=== PATIENT | female | born 1975 | race African-American/Black ===

== ENCOUNTER 2017-09-28 15:33 | Emergency (ER) | payer MEDICARE, OTHER ==
[~2017-09-28] VITALS: Ht 160 cm; Wt 92.1 kg
[2017-09-28] MEDS ORDERED: ASPIR 8181 MG PO (16:00)
[2017-09-28] MEDS ORDERED: ACETAMINOPHEN 325 MG TAB PO ONE (16:00)
[2017-09-28] MEDS ORDERED: ATORVASTATIN CA10 MG PO (16:01)
[2017-09-28] MEDS ORDERED: BENZTROPINE ME0.5 MG PO (16:01)
[2017-09-28] MEDS ORDERED: BUSPIRONE HCL5 MG PO (16:02)
[2017-09-28] MEDS ORDERED: CRYSELLE1 EACH PO (16:03)
[2017-09-28] MEDS ORDERED: COLACE100 MG PO (16:04)
[2017-09-28] MEDS ORDERED: DIVALPROEX SOD500 M1 PO (16:04)
[2017-09-28] MEDS ORDERED: CYMBALTA30 MG PO (16:05)
[2017-09-28] MEDS ORDERED: FENOFIBRATE145 MG PO (16:05)
[2017-09-28] MEDS ORDERED: LEVOTHYROXINE75 MCG PO (16:06)
[2017-09-28] MEDS ORDERED: GABAPENTIN100 MG PO (16:06)
[2017-09-28] MEDS ORDERED: JANUVIA100 MG PO (16:06)
[2017-09-28] MEDS ORDERED: LISINOPRIL2.5 MG PO (16:07)
[2017-09-28] MEDS ORDERED: OMEPRAZOLE40 MG PO (16:09)
[2017-09-28] MEDS ORDERED: MIRTAZAPINE15 MG PO (16:09)
[2017-09-28] MEDS ORDERED: OLANZAPINE5 MG PO (16:09)
[2017-09-28] MEDS ORDERED: METFORMIN HCL500 MG PO (16:09)
[2017-09-28] MEDS ORDERED: QUETIAPINE FUM100 MG PO (16:09)
[2017-09-28] MEDS ORDERED: LITHIUM CARBON300 M1 PO (16:09)
[2017-09-28 16:32] VITALS: BP 108/57
== END 2017-09-28 16:15 | disposition home or self-care (01) ==
LOC: FSED 15:33
DX: M79.605 Pain in left leg (principal); M79.604 Pain in right leg; E11.40 Type 2 diabetes mellitus with diabetic neuropathy, unspecified; I10 Essential (primary) hypertension; G40.909 Epilepsy, unspecified, not intractable, without status epilepticus; K21.9 Gastro-esophageal reflux disease without esophagitis; E78.5 Hyperlipidemia, unspecified; F79 Unspecified intellectual disabilities; F25.9 Schizoaffective disorder, unspecified; Z86.73 Personal history of transient ischemic attack (TIA), and cerebral infarction without residual deficits; I25.2 Old myocardial infarction
CPT/HCPCS: 99283